=== PATIENT | female | born 1985 | race Hispanic/Latino ===

== ENCOUNTER 2020-01-17 10:21 | Inpatient (IN) | payer OTHER, SELFPAY ==
[2020-01-17] VITALS (109 sets, daily range): BP systolic 121–169; BP diastolic 65–118; PULSE 69–118; RESP 16; TEMP 36.7–37.4; O2SAT 96–100; BMI 26.4
[2020-01-17 11:15] LABS: Glucose Point of Care 86 (65-105)
[2020-01-17 11:26] LABS: Basophils Percent Auto 0.3 % (0.2-1.2); Eosinophils Absolute Auto 0.1 K/mm3 (0-0.3); Eosinophils Percent Auto 0.7 % (0-4.4); Hematocrit 33.7 % (37.0-47.0); Hemoglobin 11.2 g/dL (12.0-15.0); Immature Granulocyte Absolute 0.03 K/mm3 (0.00-0.031); Immature Granulocyte Percent A 0.3 % (0-0.5); Lymphocytes Absolute Auto 1.33 K/mm3 (0.9-3.2); Lymphocytes Percent Auto 14.9 % (18.3-44.2); Mean Corpuscular HGB Conc 33.2 g/dl (32-36); Mean Corpuscular Hemoglobin 29.1 pg (26-34); Mean Corpuscular Volume 87.5 fl (80-100); Mean Platelet Volume 9.7 fl (7.4-10.4); Monocytes Absolute Auto 0.6 K/mm3 (0.1-0.6); Monocytes Percent Auto 7.1 % (2.6-8.5); Neutrophils Absolute Auto 6.8 K/mm3 (1.3-6.7); Neutrophils Percent Auto 76.7 % (45.5-73.1); Platelet Count Result 299 k/mm3 (150-375); Red Blood Count 3.85 M/mm3 (4.2-5.4); Red Cell Distribution Width 15.5 % (11.5-14.5); White Blood Count 8.9 K/mm3 (4.5-10.0)
[2020-01-17] MEDS: AMPICILLIN 2 GM/NS 100 ML 2 GM/100 ML BAG IVPB (11:36)
[2020-01-17] MEDS: OXYTOCIN 30 UNITS/NS 500 ML 30 UNITS/500 ML BAG IV CONT (11:37)
[2020-01-17] MEDS: LACTATED RINGERS 1,000 ML 125 ML IV CONT ×2 (11:38→13:58)
--- NOTE | 2020-01-17 11:57 | WPDANESEPP ---
Anes - Eval Pre Procedure Procedure: Labor epidural Date/Time: 01/17/20 11:57 Surgeon: Cate Preop Diagnosis: Abd pain with contractions Pre Op Diagnosis: labor Patient Data Age: 34 Gender: F Height: 5 ft 4 in Weight: 70 kg Last Vital Signs Pulse 78 01/17/20 11:45 BP 145/81 H 01/17/20 11:45 Allergies Allergy/AdvReac Type Severity Reaction Status Date / Time No Known Allergies Allergy Unverified 06/28/11 01:23 Home Medications Medication Instructions Recorded Confirmed Type PNV cmb#95-ferrous fumarate-FA 1 tablet PO DAILY 01/17/20 01/17/20 History [] ferrous sulfate 325 mg PO DAILY 01/17/20 01/17/20 History Laboratory Tests 01/17/20 01/17/20 01/17/20 11:01 11:01 11:11 WBC 8.9 K/mm3 K/mm3 (4.5-10.0) RBC 3.85 M/mm3 L M/mm3 (4.2-5.4) Hgb 11.2 g/dL L g/dL (12.0-15.0) Hct 33.7 % L % (37.0-47.0) MCV 87.5 fl fl (80-100) MCH 29.1 pg pg (26-34) MCHC 33.2 g/dl g/dl (32-36) RDW 15.5 % H % (11.5-14.5) Plt Count 299 k/mm3 k/mm3 (150-375) MPV 9.7 fl fl (7.4-10.4) Immature Gran % (Auto) 0.3 % % (0-0.5) Neut % (Auto) 76.7 % H % (45.5-73.1) Lymph % (Auto) 14.9 % L % (18.3-44.2) [place] % (Auto) 7.1 % % (2.6-8.5) Eos % (Auto) 0.7 % % (0-4.4) Baso % (Auto) 0.3 % % (0.2-1.2) Lymph # (Auto) 1.33 K/mm3 K/mm3 (0.9-3.2) [place] # (Auto) 0.6 K/mm3 K/mm3 (0.1-0.6) Eos # (Auto) 0.1 K/mm3 K/mm3 (0-0.3) Baso # (Auto) 0.0 K/mm3 K/mm3 (0.0-0.1) Abs Immat Gran (auto) 0.03 K/mm3 K/mm3 (0.00-0.031) Absolute Neuts (auto) 6.8 K/mm3 H K/mm3 (1.3-6.7) Absolute Nucleated RBC 0.0 K/mm3 K/mm3 (0.0-0.012) Nucleated RBC % 0.0 % % (0.0-0.2) POC Capillary Glucose 86 mg/dl mg/dl (65-105) RPR Pending Patient hx anesthesia problems: none Family hx anesthesia problems: none [facility] Past Medical History Medical History (Updated 01/17/20 @ 11:59 by Jose Lozano CRNA) Overweight (BMI 25.0-29.9) Family History Family History Mother Diabetes mellitus Hypertension Father Diabetes mellitus Hypertension Social History Social History Substance use: never Gender identity (if verbalized by the patient): Female Spiritual care concerns: No Exam Day of Procedure 01/17/20 11:57 Patient weight: overweight Neurological: alert and oriented
--- NOTE | 2020-01-17 11:59 | LDADM ---
This patient, Cierra Damico, was admitted to Labor/Delivery/Recovery 106 on 01/17/20 at 10:21. Plans for labor, pain management and were discussed with patient. Patient/family oriented to hospital policies and general routines including ID bracelet, bed and alarms, visiting hours, pain management, procedures, bathroom and other care routines, personal items, smoking policy, room service/diet and guest tray routines, security routines, and visiting hours. Patient/Family are encouraged to report perceived risks to care and to ask questions if they do not understand what they are told or what they should do. See OBIX for further documentation.
--- NOTE | 2020-01-17 12:32 | WPDOBADMIT ---
Obstetrics - Admit Note Admission Note: record reviewed. No pertinent additions to the history and/or any subsequent changes in the physical findings that are not consistent with the expected course of the were found. Pt arrived with SROM, GBS +, GDMA-2, 10 u at hs, anticipate vaginal delivery Additions to the history and/or subsequent changes in the physical findings follow. None.
[2020-01-17 14:09] LABS: Glucose Point of Care 76 (65-105)
[2020-01-17] MEDS: AMPICILLIN 1 GM/NS 50 ML 1 GM/50 ML BAG IVPB (15:33)
--- NOTE | 2020-01-17 17:12 | PM.OBPRVD ---
OB - Delivery Note Procedure Delivery date: 01/17/20 Procedure: vaginal delivery events: Labor < 37 Weeks, Gestational Diabetes and Induced HTN (chronic HTN) Intrapartal events: None Induction method: none Delivery augmentation: pitocin Delivery monitor: external FHT and external uterine Route of delivery: Laceration description: Perineal - 2nd Degree Delivery repair: vicryl Specimen: Yes Estimated blood loss (mL): 185 Anesthesia type: Epidural Disposition: other () Narrative: mother and baby skin to skin and in stable condition Baby Date of : 01/17/20 Time of : 16:59 Weeks of gestation at delivery: 36 Infant gender: Female Weight (pounds): 5 Weight (ounces): 3 presentation: vertex position: Left Occiput Anterior Placenta delivery description: Spontaneous cord vessel description: 3 Vessels and Clamped/Cut score one minute: 9 score five minutes: 9
[2020-01-17] MEDS: OXYTOCIN 30 UNITS/NS 500 ML 30 UNITS/500 ML BAG 125 UNITS IV CONT (17:39)
[2020-01-17] MEDS: WITCH HAZEL 40 PADS 1 PAD TOPICAL (19:14)
[2020-01-17] MEDS: BENZOCAINE 20% AER SPR (*SP) 56 GM CAN 1 SPRAY TOPICAL (19:14)
--- NOTE | 2020-01-18 01:34 | OBPPTRN ---
Patient transferred to post room #282 via wheelchair. Support person present. Oriented to unit, room, information board, rooming in, admission packet and security measures. Patient verbalizes understanding. with patient.
[2020-01-18] MEDS: IBUPROFEN 600 MG TABLET PO ×2 (04:17→16:29)
[2020-01-18 05:17] LABS: Hemoglobin 10.1 g/dL (12.0-15.0)
[2020-01-18] MEDS: ACETAMINOPHEN 325 MG TABLET 650 MG PO (07:27)
[2020-01-18] MEDS: DOCUSATE SODIUM 100 MG CAPSULE PO ×2 (07:27→16:30)
[2020-01-18] MEDS: MULTIVIT/MIN/PREN/FOL AC/IRON TABLET 1 TAB PO (07:27)
--- NOTE | 2020-01-18 07:39 | P.PNOB_ITS ---
OB - PN: Subj Subjective Date/time seen: 01/18/20 07:39 Patient comments: no complaints, pain well controlled and other (Lochia similar to menses) [place] baby status: doing well OB - PN: Obj Data Labs CBC & Chem 7: 01/18/20 05:04 Labs: Laboratory Results - last 24 hr 01/17/20 01/17/20 01/17/20 11:01 11:01 11:11 WBC 8.9 RBC 3.85 L Hgb 11.2 L Hct 33.7 L MCV 87.5 MCH 29.1 MCHC 33.2 RDW 15.5 H Plt Count 299 MPV 9.7 Immature Gran % (Auto) 0.3 Neut % (Auto) 76.7 H Lymph % (Auto) 14.9 L [place] % (Auto) 7.1 Eos % (Auto) 0.7 Baso % (Auto) 0.3 Lymph # (Auto) 1.33 [place] # (Auto) 0.6 Eos # (Auto) 0.1 Baso # (Auto) 0.0 Abs Immat Gran (auto) 0.03 Absolute Neuts (auto) 6.8 H Absolute Nucleated RBC 0.0 Nucleated RBC % 0.0 POC Capillary Glucose 86 Blood Type O Positive Antibody Screen Negative 01/17/20 01/18/20 14:07 05:04 WBC RBC Hgb 10.1 L Hct 30.0 L MCV MCH MCHC RDW Plt Count MPV Immature Gran % (Auto) Neut % (Auto) Lymph % (Auto) [place] % (Auto) Eos % (Auto) Baso % (Auto) Lymph # (Auto) [place] # (Auto) Eos # (Auto) Baso # (Auto) Abs Immat Gran (auto) Absolute Neuts (auto) Absolute Nucleated RBC Nucleated RBC % POC Capillary Glucose 76 Blood Type Antibody Screen OB - PN A/P Plan day: 1 (s/p vaginal delivery, doing well) Plan: routine care Time Spent With Patient Time: Total time spent is greater than 50% in coordination of care (as documented) at patient's floor/unit and/or counseling patient: Exam Const: General: no acute distress GI: Inspection: other (Fundus firm and nontender at umbilicus) GI Palp: Yes Soft to palpation and No Tenderness to palpation present (GI) Extrem: General: no edema
[2020-01-18 08:15] VITALS: BP 119/73; PULSE 73; RESP 16; TEMP 37; O2SAT 100
--- NOTE | 2020-01-18 10:11 | WPDANLDPN2 ---
Anes-Prog Note L&D Date/Time: 01/18/20 10:11 Comfortable throughout: labor and delivery Neuraxial method: epidural Epidural/Spinal procedure site: clean & non-tender Neuro status: Neuro function grossly intact. Cardiovascular status: normal Respiratory status: normal Airway patency: baseline Mental status: baseline Post-Op hydration status: normal Vital Signs: Last Vital Signs Temp 37.0 C 01/18/20 08:15 Pulse 73 01/18/20 08:15 Resp 16 01/18/20 08:15 BP 119/73 01/18/20 08:15 Pulse Ox 100 01/18/20 08:15 I/O: Intake & Output 01/17/20 01/18/20 01/18/20 23:59 07:59 15:59 Intake Total 50 Output Total 515 Balance -465 Post-procedural complaints: none Patient feedback: Patient satisfied with anesthetic care.
[2020-01-18 10:20] LABS: Rapid Plasma Reagin Non-Reactive (NonReactive)
[2020-01-18] MEDS: WITCH HAZEL 40 PADS 1 PAD TOPICAL (16:30)
[2020-01-18 19:30] VITALS: BP 125/77; PULSE 73; RESP 14; TEMP 36.7; O2SAT 100
[2020-01-19] MEDS: IBUPROFEN 600 MG TABLET PO (02:53)
--- NOTE | 2020-01-19 07:36 | PM.OBPNVD ---
OB - PN: Subj Subjective Date/time seen: 01/19/20 07:36 Patient comments: no complaints baby status: doing well [place] feeding status: breast and bottle feeding OB - PN: Obj Data Labs CBC & Chem 7: 01/18/20 05:04 Labs: Laboratory Results - last 24 hr 01/17/20 11:01 RPR Non-reactive OB - PN A/P Plan day: 2 Plan: discharge home Time Spent With Patient Time: Total time spent is greater than 50% in coordination of care (as documented) at patient's floor/unit and/or counseling patient: Review of Systems Review of Systems: All systems reviewed & are unremarkable except as noted in HPI and below Exam Const: General: comfortable Resp: Effort & Inspection: normal respiratory effort Psych: Appearance: grossly normal Mental Status: mental status grossly normal Affect: normal affect Attitude: cooperative Judgement: Good judgement present (Psych)
--- NOTE | 2020-01-19 07:38 | PM.OBDSVD ---
OB - DS: Summary OB Procedures : None OB Procedures Intrapartum: Spontaneous Vag Delivery OB Procedures: : None Time Spent with Patient Time attestation: Total time spent providing and/or coordinating discharge services: DS: Data Data Completed and Pending Pending studies at discharge: Pending at discharge 01/17/20 19:07 Surgical [PTH] Routine Labs on day of discharge: Labs from last 24 hours 01/17/20 11:01 RPR Non-reactive Discharge Plan Discharge Attending physician on discharge: Gerardo Esposito Consulting providers: Maxi Silverio Discharging Clinician: Laura Lee Patient Disposition: Home, Self-Care Activity: pelvic rest Diet: regular Patient Instructions: Antibiotic Form Stand Alone Forms: General Discharge Information Follow-up/Referrals: Laura Lee CNM [Certified Nurse Building Official] - 4 Weeks Discharge Medications: Continued PNV cmb#95-ferrous fumarate-FA [] 28 mg iron- 800 mcg Tablet 1 tablet PO DAILY RF: 0 Discontinued ferrous sulfate 325 mg (65 mg iron) Tablet 325 mg PO DAILY RF: 0 Date of admission: 01/17/20 10:21 Primary Care Provider: PHYSICIAN,STOCK [employer]OKER SUPERVISOR Admitting Provider: Gerardo Esposito Attending physician on admission: Gerardo Esposito
[2020-01-19 07:45] VITALS: BP 142/95; PULSE 68; RESP 18; TEMP 36.7; O2SAT 100
[2020-01-19] MEDS: DOCUSATE SODIUM 100 MG CAPSULE PO (08:01)
[2020-01-19] MEDS: ACETAMINOPHEN 325 MG TABLET 650 MG PO (08:01)
[2020-01-19] MEDS: MULTIVIT/MIN/PREN/FOL AC/IRON TABLET 1 TAB PO (08:01)
[2020-01-19] MEDS: BENZOCAINE 20% AER SPR (*SP) 56 GM CAN 1 SPRAY TOPICAL (08:01)
[2020-01-19] MEDS: WITCH HAZEL 40 PADS 1 PAD TOPICAL (08:02)
[2020-01-19] MEDS: TETANUS,DIPHTHERIA,AC PERTUSSIS ADULT (0.5 ML) BOOSTRIX IM (08:02)
--- NOTE | 2020-01-19 10:15 | PC.NURSE ---
Mother is able to independently latch infant with appropriate positioning/alignment. She denies any nipple discomfort, is feeding as required and waking to feed if needed. has had several effective feedings in the past 24 hours, and is currently meeting outcomes output, jaundice and feeding frequencies. ICP has requested be supplemented after breastfeedings due to status and close to 10% weight loss. Mother is pumping after most feedings to stimulate milk supply and will offer EBM as part of supplement. Mother states she feels confident to continue current feeding plan at home. Mother understand not to discontinue supplement until seen by ICP for first visit. Reviewed transition to breast milk, signs of adequate intake, and engorgement/relief. Instructed to call ICP if intake/output less than required. Reviewed regular medications mother is taking. Information provided per Karishma. Reviewed community resources on the [facility] website and in the Mom/Baby guide. Information on outpatient services provided. Mother has no further questions at this time.
[2020-01-20 11:20] VITALS: BP 158/85; PULSE 78; RESP 20; TEMP 36.7; O2SAT 100
== END 2020-01-19 17:12 | disposition home or self-care (01) | DRG 560 ==
LOC: ANHOBOP 10:37 → ANHOBPP 10:38 → ANHOBOP 10:39 → ANHOBPP 10:39 → ANHLDR 10:40 → ANHOB2 19:54
PROVIDERS: Advanced Practice Midwife; Admitting Provider Obstetrics & Gynecology; Visit Provider Obstetrics & Gynecology
DX: O24.420 Gestational diabetes mellitus in childbirth, diet controlled (principal); O99.824 Streptococcus B carrier state complicating childbirth; O70.1 Second degree perineal laceration during delivery; O13.4 Gestational [pregnancy-induced] hypertension without significant proteinuria, complicating childbirth; Z3A.36 36 weeks gestation of pregnancy; Z37.0 Single live birth
CPT/HCPCS: 36415; 84112; 85014; 85018; 85025; 86592; 86850; 86900; 86901; 88307; 90715; A9270; J0290; J2590; J2795; J7120

== ENCOUNTER 2020-01-20 11:35 | Outpatient (CLI) | payer OTHER, SELFPAY ==
[2020-01-20 12:05] LABS: Basophils Absolute Auto 0.1 K/mm3 (0.0-0.1); Basophils Percent Auto 0.8 % (0.2-1.2); Eosinophils Absolute Auto 0.2 K/mm3 (0-0.3); Eosinophils Percent Auto 2.3 % (0-4.4); Hemoglobin 9.8 g/dL (12.0-15.0); Immature Granulocyte Absolute 0.05 K/mm3 (0.00-0.031); Immature Granulocyte Percent A 0.6 % (0-0.5); Lymphocytes Absolute Auto 1.41 K/mm3 (0.9-3.2); Mean Corpuscular HGB Conc 32.7 g/dl (32-36); Mean Corpuscular Volume 88.8 fl (80-100); Mean Platelet Volume 9.6 fl (7.4-10.4); Monocytes Absolute Auto 0.4 K/mm3 (0.1-0.6); Monocytes Percent Auto 5.2 % (2.6-8.5); Neutrophils Absolute Auto 5.7 K/mm3 (1.3-6.7); Neutrophils Percent Auto 73.1 % (45.5-73.1); Platelet Count Result 290 k/mm3 (150-375); Red Blood Count 3.38 M/mm3 (4.2-5.4); Red Cell Distribution Width 15.3 % (11.5-14.5); White Blood Count 7.9 K/mm3 (4.5-10.0)
[2020-01-20 12:15] VITALS: BP 145/94; PULSE 70
[2020-01-20 12:20] LABS: Alanine Aminotransferase 18 U/L (4-35); Albumin Level 3.3 g/dL (3.5-5.1); Alkaline Phosphatase 109 U/L (38-126); Anion Gap 10 mmol/L (8-16); Aspartate Amino Transferase 29 U/L (14-36); Bilirubin,Total < 0.1 mg/dL (0.2-1.3); Blood Urea Nitrogen 9 mg/dL (7-17); Carbon Dioxide 22 mmol/L (22-30); Chloride 107 mmol/L (98-107); Estimated Glomerular Filt Rate > 60; Glucose 96 mg/dL (65-105); Potassium 3.5 mmol/L (3.4-5.0); Sodium 139 mmol/L (137-145); Uric Acid 5.5 mg/dL (2.5-7.5)
--- NOTE | 2020-01-20 12:53 | PC.NURSE ---
Hazel Lee informed of lab results and BP's. OK to dc home.
== END 2020-01-20 12:25 | disposition home or self-care (01) ==
LOC: ANHOBOP 11:41 → ANHOBPP 12:07
PROVIDERS: Obstetrics & Gynecology; Visit Provider Advanced Practice Midwife
DX: O13.9 Gestational [pregnancy-induced] hypertension without significant proteinuria, unspecified trimester (principal); Z3A.00 Weeks of gestation of pregnancy not specified
CPT/HCPCS: 36415; 80053; 84550; 85025; 99199

== ENCOUNTER 2021-05-13 09:15 | Emergency (ER) | payer OTHER, SELFPAY ==
[2021-05-13 09:29] VITALS: BP 135/85; PULSE 83; RESP 16; TEMP 37.3; O2SAT 100
--- NOTE | 2021-05-13 09:42 | ED.URI ---
HPI - URI/Sore Throat General Chief Complaint: Upper Respiratory Infection Stated Complaint: sore throat/cough Time Seen by Provider: 05/13/21 09:42 Source: patient and RN notes reviewed Mode of arrival: ambulatory Limitations: no limitations History of Present Illness HPI Narrative: 35-year-old female who is breast-feeding an [id number] presents with concern for 10-day history of cough and sore throat. She reports trying [id number] remedies without relief. Reports her sore throat is a 6/10. She reports at the beginning of her illness she had body aches and fever. She denies shortness of breath. MD elicited complaint: sore throat Related Data Home Medications Medication Instructions Recorded Confirmed PNV cmb#95-ferrous fumarate-FA 1 tablet PO DAILY 01/17/20 05/13/21 [] Allergies Allergy/AdvReac Type Severity Reaction Status Date / Time No Known Allergies Allergy Verified 05/13/21 10:00 Review of Systems Review of Systems: CONSTITUTIONAL: Denies malaise, chills, sweats, or fever. EYES: Denies visual changes, redness, or discharge. ENT: Denies rhinorrhea, congestion, sinus pain, otalgia. Reports sore throat. CARDIOVASCULAR: Denies chest pain, palpitations, or edema. RESPIRATORY: Reports cough. Denies dyspnea. GASTROINTESTINAL: Denies abdominal pain, nausea, vomiting, diarrhea SKIN: Denies rash or itching. MUSCULOSKELETAL: Denies myalgia. NEUROLOGIC: Denies headache. All systems reviewed & are unremarkable except as noted in HPI and below PMFSH Past Medical History Medical History (Updated 05/13/21 @ 10:02 by Fatemeh Dubois NP) Overweight (BMI 25.0-29.9) Family History Family History Mother Diabetes mellitus Hypertension Father Diabetes mellitus Hypertension Social History Social History Smoking status: Never smoker Substance use: never Gender identity (if verbalized by the patient): Female Spiritual care concerns: No Comments At time of signature, agree with nursing past medical, surgical, social and family history. There is no relevant family history pertinent to the presenting complaint Exam Narrative: GENERAL: Well-appearing, well-nourished, and in no acute distress. HEAD: Normocephalic EYES: PERRLA, conjunctivae clear ENT: Nares clear, no discharge. Mucous membranes moist. TM pearly duong with sharp light reflex bilaterally; no tragal tenderness. Oropharynx erythematous without lesions. Tonsils enlarged and without exudate, no drooling, no hoarseness, no trismus, uvula midline. NECK: Supple. No lymphadenopathy CHEST: Clear to auscultation, breath sounds equal. No wheezing, rhonchi, rales, or stridor. No respiratory distress, speaks in full sentences. HEART: Regular rate and rhythm. No murmur heard. SKIN: Warm, dry, no rash. NEURO: Alert and oriented x3. PSYCH: Normal mood and affect Course Course Emergency Course: Patient is aware of diagnosis, understands and agrees to treatment plan. Anticipatory guidance given. Patient agrees to follow-up as directed and is aware of reasons to seek care at the emergency department. Portions of this record may have been created with voice recognition software Vital Signs Vital signs: Vital Signs Temperature 99.1 F 05/13/21 09:29 Pulse Rate 83 05/13/21 09:29 Respiratory Rate 16 05/13/21 09:29 Blood Pressure 135/85 05/13/21 09:29 Pulse Oximetry 100 05/13/21 09:29 Temperature 99.1 F 05/13/21 09:29 Pulse Rate 83 05/13/21 09:29 Respiratory Rate 16 05/13/21 09:29 Blood Pressure 135/85 05/13/21 09:29 Pulse Oximetry 100 05/13/21 09:29 Reviewed. MDM - URI/Sore Throat MDM Narrative Medical decision making narrative: Differential diagnosis considered: Lawson virus, strep pharyngitis, allergic rhinitis, upper respiratory tract infection, sinusitis, rhinosinusitis, naso
== END 2021-05-13 10:15 | disposition home or self-care (01) ==
PROVIDERS: Emergency Provider Nurse Practitioner
DX: J06.9 Acute upper respiratory infection, unspecified (principal)
CPT/HCPCS: 99213; G0463

== ENCOUNTER 2024-03-22 09:55 | Emergency (ER) | payer SELFPAY ==
[2024-03-22 10:13] VITALS: BP 164/108; PULSE 73; RESP 16; TEMP 37.2; O2SAT 99
[2024-03-22 10:18] LABS: EDUAAPPEAR Clear; EDUABILI Negative (Negative); EDUABLOOD 1+ (Negative); EDUACOLOR1 Yellow; EDUAGLUCOSE Negative (Negative); EDUAKETONE Negative (Negative); EDUALEUKO 2+ (Negative); EDUANITRATE Negative (Negative); EDUAPROTEIN Negative (Negative); EDUASPGRAVITY 1.015; EDUAUROBILI 0.2
--- NOTE | 2024-03-22 10:27 | ED.FEMALEGU ---
HPI - Female Genitourinary General Chief complaint: Urogenital-Female Stated complaint: Urinary issue Time Seen by Provider: 03/22/24 10:27 Source: patient Mode of arrival: ambulatory Limitations: no limitations History of Present Illness HPI Narrative: 38-year-old female presents with complaint of urinary frequency, dysuria, cloudy urine for the past 5-6 days. Afebrile. No back or abdominal pain. Patient concern for urinary tract infection. All systems reviewed and negative except as noted above. Related Data Allergies Allergy/AdvReac Type Severity Reaction Status Date / Time No Known Allergies Allergy Verified 03/22/24 10:06 Review of Systems Review of Systems: CONSTITUTIONAL: Denies fever, chills, or sweats. EYES: Denies visual changes, redness, or discharge. ENT: Denies rhinorrhea, congestion, sore throat, or otalgia. CARDIOVASCULAR: Denies chest pain, palpitations, or edema. RESPIRATORY: Denies cough or dyspnea. GASTROINTESTINAL: Denies abdominal pain, nausea, vomiting, or diarrhea. GENITOURINARY: Reports dysuria frequency, urgency. Denies hematuria. SKIN: Denies rash or itching. MUSCULOSKELETAL: Denies back pain, joint pain, or myalgia. NEUROLOGIC: Denies headache, numbness, or weakness. PSYCHIATRIC: Denies anxiety or depression. All other systems reviewed are negative, except as documented in HPI. [facility] Past Medical History Medical History (Updated 03/22/24 @ 10:34 by Claudette Rendon NP) Overweight (BMI 25.0-29.9) Family History Family History Mother Diabetes mellitus Hypertension Father Diabetes mellitus Hypertension Social History Social History Smoking status: Never smoker Substance use: never Gender identity (if verbalized by the patient): Female Spiritual care concerns: No Comments At time of signature, agree with nursing past medical, surgical, social and family history. There is no relevant family history pertinent to the presenting complaint. Exam Narrative: GENERAL: This is a well-nourished, well-developed patient, in no apparent distress. HEAD: normocephalic, atraumatic. EYES: PERRL. Sclera clear/white. Vision is grossly intact. EARS: External ears normal NOSE: External nose normal NECK: Neck supple, non-tender without lymphadenopathy, masses or thyromegaly. CARDIOVASCULAR: Regular rate and rhythm without murmurs, gallops, or rubs. RESPIRATORY: Clear to auscultation. Breath sounds equal bilaterally. No wheezes, rales, or rhonchi. SKIN: warm, Dry, intact with no suspicious lesions or rash, good texture and turgor. NEURO: awake, alert, and oriented to person, place and time. There were no obvious focal neurologic abnormalities. EXTREMITIES: No joint tenderness, effusion, or edema noted. Course Course Level of Care: Express Care Visit Vital Signs Vital signs: Vital Signs Temperature 37.2 C 03/22/24 10:13 Pulse Rate 73 03/22/24 10:13 Respiratory Rate 16 03/22/24 10:13 Blood Pressure 164/108 H 03/22/24 10:13 Pulse Oximetry 99 03/22/24 10:13 Oxygen Delivery Room Air 03/22/24 10:13 Temperature 37.2 C 03/22/24 10:13 Pulse Rate 73 03/22/24 10:13 Respiratory Rate 16 03/22/24 10:13 Blood Pressure 164/108 H 03/22/24 10:13 Pulse Oximetry 99 03/22/24 10:13 Oxygen Delivery Room Air 03/22/24 10:13 reviewed MDM - Female Genitourinary MDM Narrative Medical decision making narrative: Patient is aware of diagnosis, understands and agrees to treatment plan. Anticipatory guidance given. Patient agrees to follow-up as directed and is aware of reasons to seek care at the emergency department. Portions of this record may have been created with voice recognition software Differential Diagnosis Differential diagnosis: Likely urinary tract infection Lab Data Labs: Lab Results
[2024-03-22 10:40] VITALS: BP 160/92; PULSE 80; RESP 16
== END 2024-03-22 10:40 | disposition home or self-care (01) ==
PROVIDERS: Emergency Provider Nurse Practitioner Family
DX: N39.0 Urinary tract infection, site not specified (principal); B96.20 Unspecified Escherichia coli [E. coli] as the cause of diseases classified elsewhere
CPT/HCPCS: 81003; 87077; 87086; 87186; 99213; G0463